=== PATIENT | male | born 1940 | race Caucasian/White ===

== ENCOUNTER 2020-07-15 11:31 | Inpatient (IN) | payer OTHER ==
[~2020-07-15] VITALS: Ht 172.7 cm; Wt 95.7 kg
[~2020-07-15 11:31] MED LIST: FLAGYL500 MG PO; LEVAQUIN500 MG PO
[2020-07-15 12:37] LABS: HEMOGLOBIN 12.9 gm/dl (14.0-17.5); RED BLOOD COUNT 4.73 M/UL (4.20-5.50); WHITE BLOOD COUNT 20.5 K/UL (4.5-11.0)
[2020-07-15 13:06] LABS: BUN/CREATININE RATIO 20 (0-10)
[2020-07-15] MEDS ORDERED: NOVOLIN 70100 UNIT/1 SQ (18:17)
[2020-07-15] MEDS ORDERED: PLAVIX 75 MG TA75 MG PO (18:17)
[2020-07-15] MEDS ORDERED: LISINOPRIL-HCT1 EAC1 PO (18:18)
[2020-07-15] MEDS ORDERED: LOPRESSOR 25 MG25 MG PO (18:19)
[2020-07-15] MEDS ORDERED: JARDIANCE10 MG PO (18:19)
[2020-07-15] MEDS ORDERED: NORVASC5 MG PO (18:19)
[2020-07-15] MEDS ORDERED: CRESTOR20 MG PO (18:20)
[2020-07-15] MEDS ORDERED: PREVACID PO (18:21)
[2020-07-15] MEDS ORDERED: ASPIRIN81 MG PO (18:21)
[2020-07-15] MEDS ORDERED: SYNTHROID75 MCG PO (18:22)
[2020-07-16 04:52] LABS: HEMOGLOBIN 11.7 gm/dl (14.0-17.5)
[2020-07-16 04:57] LABS: RED BLOOD COUNT 4.23 M/UL (4.20-5.50); WHITE BLOOD COUNT 15.1 K/UL (4.5-11.0)
[2020-07-17 05:03] LABS: HEMOGLOBIN 10.9 gm/dl (14.0-17.5); RED BLOOD COUNT 4.02 M/UL (4.20-5.50); WHITE BLOOD COUNT 12.1 K/UL (4.5-11.0)
[2020-07-17 05:44] LABS: BUN/CREATININE RATIO 18 (0-10)
[2020-07-17] MEDS ORDERED: LEVOFLOXACIN750 MG PO (18:03)
== END 2020-07-17 19:08 | disposition home or self-care (01) | DRG 853 ==
LOC: ER1 11:31 → MED SURG 4 16:38 → CDU 16:38 → MED SURG 4 07-16 00:15
PROVIDERS: Physician Assistant; Physician Assistant Medical; ADMIT Internal Medicine
PROC: 0FT44ZZ Resection of Gallbladder, Percutaneous Endoscopic Approach (ICD-10-PCS; principal; 2020-07-15)
DX: A41.9 Sepsis, unspecified organism (principal); J96.01 Acute respiratory failure with hypoxia; J18.9 Pneumonia, unspecified organism; K80.12 Calculus of gallbladder with acute and chronic cholecystitis without obstruction; R65.20 Severe sepsis without septic shock; Z20.822 Contact with and (suspected) exposure to COVID-19; E11.9 Type 2 diabetes mellitus without complications; I10 Essential (primary) hypertension; E78.5 Hyperlipidemia, unspecified; E03.9 Hypothyroidism, unspecified; Z88.0 Allergy status to penicillin; D72.829 Elevated white blood cell count, unspecified; Z79.4 Long term (current) use of insulin; Z79.01 Long term (current) use of anticoagulants; Z79.899 Other long term (current) drug therapy
CPT/HCPCS: 36415; 36600; 71045; 71046; 76705; 80053; 81001; 82550; 82553; 82803; 82962; 83690; 83735; 83874; 84484; 85025; 85027; 87040; 93005; 96365; 96375; 99285; J0360; J1100; J1650; J1956; J2001; J2405; J2704; J2710; J3010; J7030; J7120; U0002

== ENCOUNTER → 2020-09-06 | Outpatient (CLI) | payer OTHER ==
[~2020-09-06] MED LIST changes: +ASPIRIN81 MG PO; +CRESTOR20 MG PO; +JARDIANCE10 MG PO; +LEVOFLOXACIN750 MG PO; +LISINOPRIL-HCT1 EAC1 PO; +LOPRESSOR 25 MG25 MG PO; +NORVASC5 MG PO; +NOVOLIN 70100 UNIT/1 SQ; +PLAVIX 75 MG TA75 MG PO; +PREVACID PO; +SYNTHROID75 MCG PO
== END ==
LOC: KOH-I 09:13
DX: J18.9 Pneumonia, unspecified organism (principal)
CPT/HCPCS: 71046

== ENCOUNTER → 2020-11-07 | Outpatient (CLI) | payer OTHER | LOC: HEART 5 08:54 | DX: I25.10 Atherosclerotic heart disease of native coronary artery without angina pectoris (principal); Z98.61 Coronary angioplasty status | CPT/HCPCS: 93306 ==

== ENCOUNTER → 2020-11-29 | Outpatient (CLI) | payer OTHER | LOC: KOH-I 08:56 | DX: R05 Cough (principal); R07.89 Other chest pain | CPT/HCPCS: 71046; 71100 ==

== ENCOUNTER → 2022-02-25 | Outpatient (CLI) | payer OTHER | LOC: EXRD 09:30 | DX: K76.0 Fatty (change of) liver, not elsewhere classified (principal) | CPT/HCPCS: 76700 ==